=== PATIENT | female | born 1945 | race Caucasian/White ===

== ENCOUNTER 2018-11-13 14:58 | Observation (INO) | payer OTHER ==
--- OUTSIDE RECORDS SUMMARY | 2018-11-13 15:02 | XMS REPORT ---
:1945 [facility] Address [address] [address] Care Team Providers Name Role Phone Unavailable Unavailable Unavailable Problems This patient has no known problems. Allergies, Adverse Reactions, Alerts This patient has no known allergies or adverse reactions. Medications This patient has no known medications. Results Test Description Test Time Test Comments Text Results Atomic Results Result Comments TOMOSYNTHESIS + SCREEN 2017-05-17 15:20:[address] [id number] IMAGING REPORTPatient Name: BLANCA OLSON BDate of Service: [id number]: 72 Sex: F Order #: [id number] [facility] 1945 X-Ray Number: [id number] Record Number: [id number] Hospital Number: [id number] Physician: Melissa LAWRENCE Physician: STEVEN LAWRENCEATERAL DIGITAL MAMMOGRAM WITH TOMOSYNTHESIS:CLINICAL HISTORY: Routine screening evaluation; family history of breastcancer in an aunt.TECHNIQUE: The craniocaudal and mediolateral views were obtained andtomosynthesis was utilizedFINDINGS: The breast parenchymal pattern consists of heterogeneously densebreast tissue. This could obscure small masses.There is a coarse benign calcification noted in the right central breast.This has become evident since the previous study.There is minimal vascular calcification also noted.There is no evidence of axillary adenopathy.IMPRESSION:Stable examination with no evidence of malignancy with benign changes asdescribed.BI-RADS CATEGORY 2: Benign findings.WHITE SHOE RAGGER: Beatris Trinh RTR (M)PLEASE NOTE:1. In up to 10% of patients, cancers are not visible on mammography.2. If a suspicious lump is palpated, biopsy should not be deferredbecause of a negative mammogram.MAMMOGRAPHY AT [facility] IS ACCREDITED BY THE [employer] COLLEGE OFRADIOLOGYTHANK YOU FOR YOUR OUTPATIENT REFERRALjhbElectronically Signed By: Marino Keys M.D., 05/17/2017 3:16 PMBIRADSLegally authenticated by FELICITAS Kramer 2017-05-17 15:16:26
[2018-11-13 15:48] LABS: Absolute Lymphocytes (CBC) 2.4 K/uL (0.7-4.9); Absolute Monocytes 0.5 K/uL (0.1-1.3); Absolute Neutrophil 4.2 K/uL (1.8-8.0); Basophils % 0.4 % (0-1.3); Eosinophils % 3.1 % (0-4.4); Lymphocytes % 32.8 % (15.3-44.8); MPV 7.8 fL (7.6-11.3); RBC Red Blood Cell Count 4.23 M/uL (3.86-4.86)
[2018-11-13 15:52] LABS: Protime INR 0.94
--- NOTE | 2018-11-13 16:07 | RAD REPORT ---
EXAM DESCRIPTION: RAD - Chest Single View - 11/13/2018 4:00 pm CLINICAL HISTORY: CHEST PAIN Chest pain. COMPARISON: No comparisons FINDINGS: Portable technique limits examination quality. The lungs are grossly clear. The heart is normal in size. No displaced fractures. IMPRESSION: No acute intrathoracic process suspected.
[2018-11-13] MEDS ORDERED: ASPIRIN 81 MG CHEWABLE TABLET ONE (16:12)
[2018-11-13] MEDS ORDERED: NITROGLYCERIN 0.4 MG/TAB SL ONE (16:13)
[2018-11-13] MEDS ORDERED: NA CHLORIDE 0.9% 1,000 ML ONE (16:13)
[2018-11-13] MEDS ORDERED: MAGNE/ALUM HYDROXD 30 ML UCUP ONE (16:13)
[2018-11-13] MEDS ORDERED: LIDOCAINE VISCOUS 2% SOLN 15 ML UDC ONE (16:13)
[2018-11-13 16:38] LABS: ALT/SGPT 40 U/L (12-78); AST/SGOT 25 U/L (15-37); Albumin 3.5 g/dL (3.4-5.0); Alkaline Phosphatase 148 U/L (45-117); BUN Blood Urea Nitrogen 18 mg/dL (7-18); Bicarbonate 33 mmol/L (21-32); Bilirubin Direct < 0.1 mg/dL (0-0.2); Bilirubin Total 0.5 mg/dL (0.2-1.0); Glucose Level 223 mg/dL (74-106); Lipase 219 U/L (73-393); NT PRO-BNP 47 pg/mL (<125); Potassium 3.6 mmol/L (3.5-5.1); Protein, Total 7.6 g/dL (6.4-8.2); Sodium Level 142 mmol/L (136-145); Troponin (Emerg Dept Use Only) < 0.02 ng/mL (0.0-0.045)
--- NOTE | 2018-11-13 17:28 | RAD REPORT ---
EXAM DESCRIPTION: CT - Chest For Pe Angio - 11/13/2018 5:03 pm CLINICAL HISTORY: Chest pain. CHEST PAIN COMPARISON: No comparisons TECHNIQUE: CT angiogram of the pulmonary arteries was performed with MIP. All CT scans are performed using dose optimization technique as appropriate and may include automated exposure control or mA/KV adjustment according to patient size. FINDINGS: No evidence of pulmonary thromboembolism. No acute aortic finding demonstrated. Mild ground-glass opacity in both lungs suggest mild interstitial edema. Mild underlying COPD is pres ent with small areas of cavitation in the left apex noted. No significant pericardial or pleural fluid. No concerning bony finding. IMPRESSION: No evidence of pulmonary thromboembolism. Mild interstitial pulmonary edema.
--- NOTE | 2018-11-13 17:29 | RAD REPORT ---
EXAM DESCRIPTION: US - Extremity Venous Uni Ltd - 11/13/2018 5:21 pm CLINICAL HISTORY: PAIN Leg swelling and edema. COMPARISON: No comparisons FINDINGS: Left lower extremity venous system was interrogated with Doppler technique. Normal flow, c ompressibility and augmentation was noted. There is no DVT present. IMPRESSION: No evidence of left lower extremity deep venous thrombosis.
--- NOTE | 2018-11-13 17:34 | ER ---
Nurse's Notes [facility] Name: Basia Capellan Age: 73 yrs Sex: Female : 1945 Arrival Date: 11/13/2018 Time: 15:03 Bed 25 Private MD: out of town, doctor Diagnosis: Chest pain, unspecified Presentation: 11/13 15:14 Presenting complaint: Patient states: i have pain in my chest since Wednesday and today it hj moves to my back, it looks like heart burn but today its whole day; reports SOB; denies N/V; pain is 7/10; denies taking meds BINDER STRIPPER HAND: reports bilateral leg DVT, not taking blood thinners;. Transition of care: patient was not received from another setting of care. Onset of symptoms was November 13, 2018. Risk Assessment: Do you want to hurt yourself or someone else? Patient reports no desire to harm self or others. Initial Sepsis Screen: Does the patient meet any 2 criteria? No. Patient's initial sepsis screen is negative. Does the patient have a suspected source of infection? No. Patient's initial sepsis screen is negative. Care prior to arrival: None. 15:14 Method Of Arrival: Ambulatory 15:14 Acuity: RIANA 3 hj Triage Assessment: 15:22 General: Appears in no apparent distress. uncomfortable, Behavior is calm, cooperative, hj appropriate for age. Pain: Complains of pain in chest Pain radiates to back. Cardiovascular: Capillary refill < 3 seconds Patient's skin is warm and dry. Historical: - Allergies: 15:22 No Known Allergies; hj - Home Meds: 15:22 duloxetine 60 mg oral cpDR 1 cap once daily [Active]; alprazolam 0.5 mg oral tab 1 tab hj 3 times per day [Active]; atorvastatin 40 mg oral tab 1 tab once daily [Active]; nabumetone 750 mg oral tab 1 tab 2 times per day [Active]; gabapentin 600 mg oral tab 1 tab twice a day [Active]; doxepin 100 mg Oral cap 1 cap once daily [Active]; bupropion HCl 100 mg Oral tab 1 tab daily [Active]; - PMHx: 15:22 Anxiety; Hyperlipidemia; Depression; hj - PSHx: 15:22 Hysterectomy; Cholecystectomy; hj - Immunization history:: Adult Immunizations up to date. - Social history:: Smoking status: Patient/guardian denies using tobacco, Patient/guardian denies using alcohol. - Ebola Screening: : Patient negative for fever greater than or equal to 101.5 degrees Fahrenheit, and additional compatible Ebola Virus Disease symptoms Patient denies exposure to infectious person Patient denies travel to an Ebola-affected area in the 21 days before illness onset. Screenin:22 Abuse screen: Denies threats or abuse. Denies injuries from another. Nutritional hj screening: No deficits noted. Tuberculosis screening: No symptoms or risk factors identified. Fall Risk None identified. Assessment: 15:23 Pain: Pain began 1 day ago. hj 16:26 Reassessment: Patient appears in no apparent distress at this time. No changes from ed1 previously documented assessment. Patient and/or family updated on plan of care and expected duration. Pain level reassessed. Patient is alert, oriented x 3, equal unlabored respirations, skin warm/dry/pink. Patient states symptoms have improved. 18:22 Reassessment: Patient appears in no apparent distress at this time. Patient and/or ed1 family updated on plan of care and expected duration. Pain level reassessed. Patient is alert, oriented x 3, equal unlabored respirations, skin warm/dry/pink. Patient states feeling better. Patient states symptoms have improved. 19:37 Reassessment: Attempted to call report, spoke with Little, she stated "She is going to ed1 have to call you back. She is in a patients room.". 20:44 Reassessment: Patient appears in no apparent distress at this time. Patient and/or ed1 family updated on plan of care and expected duration. Pain level reassessed. Patient is alert, oriented x 3, equal unlabored respirations, skin warm/dry/pink. Patient states feeling better. Patient states symptoms have improved. Vital Signs: 15:23 BP 156 / 80; Pulse 80; Resp 18; Temp 97.9(O); Pulse Ox 99% on R/A; Weight 64.86 kg; hj Height 5 ft. 3 in. (160.02 cm); Pain 7/10; 16:24 BP 135 / 80; Pulse 88; Resp 16; Pulse Ox 94% on R/A; mt 16:26 BP 135 / 80; Pulse 84; Resp 18; Pulse Ox 95% on R/A; Pain 4/10; ed1 18:05 BP 152 / 78; Pulse 84; Resp 16; Pulse Ox 95% on R/A; mt 18:22 BP 150 / 86; Pulse 88; Resp 17; Pulse Ox 97% on R/A; Pain 6/10; ed1 19:32 BP 161 / 76; Pulse 75; Resp 17; Temp 98.5(O); Pulse Ox 97% on R/A; Pain 3/10; ed1 20:03 BP 153 / 75; Pulse 71; Resp 16; Pulse Ox 95% on R/A; mt 15:23 Body Mass Index 25.33 (64.86 kg, 160.02 cm) hj ED Course: 15:03 Patient arrived in ED. dl4 15:03 out of town, doctor is Private Physician. dl4 15:15 Triage completed. hj 15:22 Arm band placed on left wrist. hj 15:22 Patient has correct armband on for positive identification. Placed in gown. Bed in low hj position. Call light in reach. Side rails up X 1. food mixer assembler on. Pulse ox on. NIBP on. 15:23 Patient maintains SpO2 saturation greater than 95% on room air. hj 15:24 Vivi Quinn LVN is Primary Nurse. ed1 15:25 Lee Obando PA is PHCP. cp 15:25 Lee Chacko MD is Attending Physician. cp 15:35 Inserted saline lock: 22 gauge in left antecubital area, using aseptic technique. Blood mt collected. 16:00 XRAY Chest (1 view) In Process Unspecified. EDMS 17:04 CT Chest For PE Angio In Process Unspecified. EDMS 17:19 NT PRO-BNP Sent. ed1 17:19 Magnesium Sent. ed1 17:19 LFT's Sent. ed1 17:19 CBC with Diff Sent. ed1 17:19 Basic Metabolic Panel Sent. ed1 17:21 US Extremity Venous Unilateral Ltd In Process Unspecified. EDMS 17:21 Ultrasound completed. Patient tolerated well. sg3 17:33 Tamar Root MD is Hospitalizing Provider. cp 19:38 Resting quietly. Awaiting: to call report to 4th floor. ed1 20:44 No provider procedures requiring assistance completed. Patient admitted, IV remains in ed1 place. intact, No redness/swelling at site. Administered Medications: 16:16 Drug: Aspirin Chewable Tablet 324 mg Route: PO; ed1 18:23 Follow up: Response: No adverse reaction ed1 16:16 Drug: Nitroglycerin 0.4 mg Route: Sublingual; ed1 18:24 Follow up: Response: No adverse reaction; Marked relief of symptoms ed1 16:16 Drug: NS 0.9% 1000 ml Route: IV; Rate: 100 ml/hr; Site: left antecubital; ed1 18:24 Follow up: IV Status: Infusion continued upon admission ed1 16:16 Drug: NS 0.9% 250 ml Route: IV; Rate: calculated rate; Site: left antecubital; ed1 18:26 Follow up: IV Status: Completed infusion; IV Intake: 250ml ed1 16:17 Drug: GI Cocktail without - (Maalox Suspension 30 ml, Lidocaine Liquid 2 % 15 ed1 ml) Route: PO; 18:26 Follow up: Response: No adverse reaction ed1 18:22 Drug: Lovenox 40 mg Route: Sub-Q; Site: left lower abdomen; ed1 20:40 Follow up: Response: No adverse reaction ed1 18:22 Drug: Metoprolol 25 mg Route: PO; ed1 20:40 Follow up: Response: No adverse reaction ed1 Intake: 18:26 IV: 250ml; Total: 250ml. ed1 Outcome: 17:33 Decision to Hospitalize by Provider. cp 20:44 Admitted to Tele accompanied by tech, family with patient, via wheelchair, room 414, ed1 with chart, Report called to PHILIP Loomis 20:44 Condition: stable 20:44 Discharge instructions given to patient, family, Instructed on the need for admit, Demonstrated understanding of instructions. 20:45 Patient left the ED. ed1 Signatures: Dispatcher [employer] EDMS Vivi Quinn, ELLIE ACCORDION TUNER ed1 Rohit Whitlock RN RN hj Page, Corey, PA PA cp Thompson, Moriah mt Godinez, Sarah 3 Shayan Ordaz dl4 Corrections: (The following items were deleted from the chart) 15:25 15:14 Presenting complaint: Patient states: i have pain in my chest since Wednesday and hj today it moves to my back, it looks like heart burn but today its whole day; reports SOB; denies N/V; pain is 7/10; denies taking meds BINDER STRIPPER HAND: hj 15:25 15:23 Pulse 80bpm; Resp 18bpm; Pulse Ox 99% RA; Temp 97.9F Oral; 64.86 kg; Height 5 ft. hj 3 in.; BMI: 25.3; Pain 7/; hj
--- NOTE | 2018-11-13 17:35 | EDPHYS ---
Physician Documentation [facility] Name: Basia Capellan Age: 73 yrs Sex: Female : 1945 Arrival Date: 11/13/2018 Time: 15:03 Bed 25 Private MD: out of town, doctor ED Physician Lee Chacko HPI: 11/13 15:45 This 73 yrs old Female presents to ER via Ambulatory with complaints of cp Cough, Chest Congestion, Chest Pain. 15:45 The patient or guardian reports chest pain that is located primarily in the anterior cp chest wall. 15:45 Onset: 2 day(s) ago, and became persistent this morning. The pain radiates to back. cp Associated signs and symptoms: Pertinent positives: cough, lower extremity pain, lower extremity swelling, Pertinent negatives: abdominal pain, diaphoresis, palpitations, recent travel, shortness of breath, syncope. Duration: The patient or guardian reports multiple episodes, that wax and wane. Historical: - Allergies: 15:22 No Known Allergies; hj - Home Meds: 15:22 duloxetine 60 mg oral cpDR 1 cap once daily [Active]; alprazolam 0.5 mg oral tab 1 tab hj 3 times per day [Active]; atorvastatin 40 mg oral tab 1 tab once daily [Active]; nabumetone 750 mg oral tab 1 tab 2 times per day [Active]; gabapentin 600 mg oral tab 1 tab twice a day [Active]; doxepin 100 mg Oral cap 1 cap once daily [Active]; bupropion HCl 100 mg Oral tab 1 tab daily [Active]; - PMHx: 15:22 Anxiety; Hyperlipidemia; Depression; hj - PSHx: 15:22 Hysterectomy; Cholecystectomy; hj - Immunization history:: Adult Immunizations up to date. - Social history:: Smoking status: Patient/guardian denies using tobacco, Patient/guardian denies using alcohol. - Ebola Screening: : Patient negative for fever greater than or equal to 101.5 degrees Fahrenheit, and additional compatible Ebola Virus Disease symptoms Patient denies exposure to infectious person Patient denies travel to an Ebola-affected area in the 21 days before illness onset. ROS: 15:55 Constitutional: Negative for body aches, chills, fever, poor PO intake. cp 15:55 Eyes: Negative for injury, pain, redness, and discharge. cp 15:55 ENT: Negative for drainage from ear(s), ear pain, sore throat, difficulty swallowing, difficulty handling secretions. 15:55 Neck: Negative for pain with movement, pain at rest, stiffness. 15:55 Cardiovascular: Positive for chest pain, Negative for edema, palpitations. 15:55 Respiratory: Positive for cough, with no reported sputum, Negative for shortness of breath, wheezing. 15:55 Abdomen/GI: Negative for abdominal pain, nausea, vomiting, and diarrhea, black/tarry stool, rectal bleeding. 15:55 Back: Positive for radiated pain. 15:55 : Negative for urinary symptoms. 15:55 Skin: Negative for cellulitis, rash. 15:55 Neuro: Negative for altered mental status, dizziness, headache, loss of consciousness, syncope, weakness. 15:55 All other systems are negative. Exam: 15:44 ECG was reviewed by the Attending Physician. cp 15:55 Constitutional: The patient appears in no acute distress, alert, awake, cp non-diaphoretic, non-toxic, well developed, well nourished. 15:55 Head/Face: Normocephalic, atraumatic. Eyes: Pupils equal round and reactive to light, cp extra-ocular motions intact. Lids and lashes normal. Conjunctiva and sclera are non-icteric and not injected. Cornea within normal limits. Periorbital areas with no swelling, redness, or edema. ENT: Nares patent. No nasal discharge, no septal abnormalities noted. Tympanic membranes are normal and external auditory canals are clear. Oropharynx with no redness, swelling, or masses, exudates, or evidence of obstruction, uvula midline. Mucous membranes moist. Neck: Trachea midline, no thyromegaly or masses palpated, and no cervical lymphadenopathy. Supple, full range of motion without nuchal rigidity, or vertebral point tenderness. No Meningismus. Chest/axilla: Normal chest wall appearance and motion. Nontender with no deformity. No lesions are appreciated. 15:55 Cardiovascular: Rate: normal, Rhythm: regular, Pulses: Pulses are 2+ in right radial artery and left radial artery. Edema: ankle edema, that is mild, left ankle, JVD: is not appreciated. 15:55 Respiratory: the patient does not display signs of respiratory distress, Respirations: normal, no use of accessory muscles, no retractions, no splinting, no tachypnea, labored breathing, is not present, Breath sounds: are clear throughout, no decreased breath sounds, no stridor, no wheezing. 15:55 Abdomen/GI: Inspection: abdomen appears normal, Bowel sounds: active, all quadrants, Palpation: abdomen is soft and non-tender, in all quadrants, rebound tenderness, is not appreciated, voluntary guarding, is not appreciated, involuntary guarding, is not appreciated. 15:55 Back: pain, that is mild, ROM is normal. 15:55 Musculoskeletal/extremity: DVT Exam: pain, of the left leg, swelling, of the left leg, tenderness, that is mild, of the left leg. 15:55 Skin: cellulitis, is not appreciated, no rash present. 15:55 Neuro: Orientation: to person, place \T\ time. Mentation: is normal, Cerebellar function: is grossly normal, Motor: moves all fours, strength is normal, Sensation: is normal. Vital Signs: 15:23 BP 156 / 80; Pulse 80; Resp 18; Temp 97.9(O); Pulse Ox 99% on R/A; Weight 64.86 kg; hj Height 5 ft. 3 in. (160.02 cm); Pain 7/10; 16:24 BP 135 / 80; Pulse 88; Resp 16; Pulse Ox 94% on R/A; mt 16:26 BP 135 / 80; Pulse 84; Resp 18; Pulse Ox 95% on R/A; Pain 4/10; ed1 18:05 BP 152 / 78; Pulse 84; Resp 16; Pulse Ox 95% on R/A; mt 18:22 BP 150 / 86; Pulse 88; Resp 17; Pulse Ox 97% on R/A; Pain 6/10; ed1 19:32 BP 161 / 76; Pulse 75; Resp 17; Temp 98.5(O); Pulse Ox 97% on R/A; Pain 3/10; ed1 20:03 BP 153 / 75; Pulse 71; Resp 16; Pulse Ox 95% on R/A; mt 15:23 Body Mass Index 25.33 (64.86 kg, 160.02 cm) MDM: 15:27 Patient medically screened. 17:32 Data reviewed: vital signs, nurses notes, lab test result(s), EKG, radiologic studies, cp CT scan, plain films, ultrasound. 17:32 The patient was given aspirin in the Emergency Department. Test interpretation: by ED cp physician or midlevel provider: ECG, plain radiologic studies. 17:35 Physician consultation: Tamar Root MD was called at 17:30, was contacted at 17:30, cp regarding admission, to the telemetry unit. patient's condition. 11/13 15:40 Order name: Basic Metabolic Panel 11/13 15:40 Order name: CBC with Diff 11/13 15:40 Order name: LFT's cp 11/13 15:40 Order name: Magnesium cp 11/13 15:40 Order name: NT PRO-BNP cp 11/13 15:40 Order name: PT-INR; Complete Time: 16:27 cp 11/13 15:40 Order name: Troponin (emerg Dept Use Only); Complete Time: 16:40 cp 11/13 16:41 Interpretation: Reviewed. 11/13 15:40 Order name: D-Dimer; Complete Time: 16:27 cp 11/13 17:31 Interpretation: D-DIMER 722; Reviewed. 11/13 15:40 Order name: Lipase; Complete Time: 16:40 cp 11/13 15:41 Order name: Basic Metabolic Panel; Complete Time: 16:40 EDMS 11/13 16:40 Interpretation: Normal except: CO2 33; GLUC 223; GFR 49. cp 11/13 15:41 Order name: CBC with Automated Diff; Complete Time: 16:27 EDMS 11/13 16:28 Interpretation: Reviewed. 11/13 15:41 Order name: Liver (Hepatic) Function; Complete Time: 16:40 EDMS 11/13 16:41 Interpretation: Normal except: ALK 148; GLOB 4.1; A/G 0.9. cp 11/13 15:41 Order name: Magnesium; Complete Time: 16:40 EDMS 11/13 15:41 Order name: NT PRO-BNP; Complete Time: 16:40 EDMS 11/13 15:24 Order name: EKG; Complete Time: 15:24 hj 11/13 15:40 Order name: XRAY Chest (1 view); Complete Time: 16:27 cp 11/13 15:40 Order name: Cardiac monitoring; Complete Time: 15:42 cp 11/13 15:40 Order name: EKG - Nurse/Tech; Complete Time: 15:42 cp 11/13 15:40 Order name: IV Saline Lock; Complete Time: 15:43 cp 11/13 16:01 Order name: CT Chest For PE Angio; Complete Time: 17:31 cp 11/13 16:01 Order name: US Extremity Venous Unilateral Ltd; Complete Time: 17:31 cp 11/13 18:01 Order name: Urine Dipstick--Ancillary (enter results) ag 11/13 18:17 Order name: Urine Dipstick-Ancillary EDMS 11/13 15:40 Order name: Labs collected and sent; Complete Time: 15:43 cp 11/13 15:40 Order name: O2 Per Protocol; Complete Time: 15:43 cp 11/13 15:40 Order name: O2 Sat Monitoring; Complete Time: 15:43 cp 11/13 16:02 Order name: Urine Dipstick-Ancillary (obtain specimen); Complete Time: 18:29 cp EC:44 Rate is 81 beats/min. Rhythm is regular. MT interval is normal. QRS interval is normal. cp QT interval is normal. T waves are Inverted in lead aVL. Interpreted by me. Reviewed by me. Administered Medications: 16:16 Drug: Aspirin Chewable Tablet 324 mg Route: PO; ed1 18:23 Follow up: Response: No adverse reaction ed1 16:16 Drug: Nitroglycerin 0.4 mg Route: Sublingual; ed1 18:24 Follow up: Response: No adverse reaction; Marked relief of symptoms ed1 16:16 Drug: NS 0.9% 1000 ml Route: IV; Rate: 100 ml/hr; Site: left antecubital; ed1 18:24 Follow up: IV Status: Infusion continued upon admission ed1 16:16 Drug: NS 0.9% 250 ml Route: IV; Rate: calculated rate; Site: left antecubital; ed1 18:26 Follow up: IV Status: Completed infusion; IV Intake: 250ml ed1 16:17 Drug: GI Cocktail without - (Maalox Suspension 30 ml, Lidocaine Liquid 2 % 15 ed1 ml) Route: PO; 18:26 Follow up: Response: No adverse reaction ed1 18:22 Drug: Lovenox 40 mg Route: Sub-Q; Site: left lower abdomen; ed1 20:40 Follow up: Response: No adverse reaction ed1 18:22 Drug: Metoprolol 25 mg Route: PO; ed1 20:40 Follow up: Response: No adverse reaction ed1 Disposition: 11/14 07:26 Co-signature as Attending Physician, Lee Chacko MD I agree with the assessment and lis plan of care. Disposition: 11/13/18 17:33 Hospitalization ordered by Tamar Root for Observation. Preliminary diagnosis is Chest pain, unspecified. - Bed requested for Telemetry/MedSurg (observation). - Status is Observation. ed1 - Condition is Stable. - Problem is new. - Symptoms have improved. UTI on Admission? No Signatures: Dispatcher [employer] EDMS Lee Chacko MD MD cha Riggs, Erika, LEHR CUTTER LEHR CUTTER ed1 Eula Hardin ag Rohit Whitlock, PHILIP RN hj Lee Obando PA PA cp Corrections: (The following items were deleted from the chart) 11/13 17:51 17:33 Hospitalization Ordered by Tamar Root MD for Observation. Preliminary diagnosis ag is Chest pain, unspecified. Bed requested for Telemetry/MedSurg (observation). Status is Observation. Condition is Stable. Problem is new. Symptoms have improved. UTI on Admission? No. cp 20:45 17:51 11/13/2018 17:33 Hospitalization Ordered by Tamar Root MD for Observation. ed1 Preliminary diagnosis is Chest pain, unspecified. Bed requested for Telemetry/MedSurg (observation). Status is Observation. Condition is Stable. Problem is new. Symptoms have improved. UTI on Admission? No. ag 11/14 16:32 11/12 15:45 This 73 yrs old Female presents to ER via Ambulatory with cp complaints of Cough, Chest Congestion, Chest Pain. cp
[2018-11-13 18:16] LABS: Urine Blood TRACE (NEG); Urine Glucose TRACE (NEG); Urine Protein NEGATIVE (NEG)
[2018-11-13] MEDS ORDERED: ENOXAPARIN 40 MG/0.4 ML SQ ONE (18:27)
[2018-11-13] MEDS ORDERED: METOPROLOL TAR 25 MG TAB ONE (18:27)
[2018-11-13 20:59] VITALS: BMI 25.3
[2018-11-13] MEDS ORDERED: POTASSIUM CL SA 10 MEQ TAB PO ONE (22:05)
[2018-11-14] MEDS ORDERED: DIPHENHYDRAMINE PO PRN (01:51)
[2018-11-14] MEDS ORDERED: ALPRAZOLAM 0.5 MG TABLET PO PRN (01:51)
[2018-11-14] MEDS ORDERED: ACETAMINOPHEN PO PRN (01:51)
[2018-11-14] MEDS ORDERED: ALPRAZOLAM 1 MG TABLET PO ONE (01:52)
[2018-11-14] MEDS ORDERED: DOXEPIN HCL 25 MG CAP PO SCH ×2 (03:00→21:00)
[2018-11-14] MEDS ORDERED: GABAPENTIN 300 MG CAP PO SCH ×3 (03:00→09:00)
[2018-11-14 06:38] LABS: Absolute Lymphocytes (CBC) 2.2 K/uL (0.7-4.9); Absolute Monocytes 0.5 K/uL (0.1-1.3); Absolute Neutrophil 3.8 K/uL (1.8-8.0); Basophils % 0.3 % (0-1.3); Eosinophils % 2.8 % (0-4.4); Hematocrit 37.8 % (36.0-45.0); Lymphocytes % 32.2 % (15.3-44.8); MPV 7.9 fL (7.6-11.3); Monocytes % 7.8 % (3.3-12.3); RBC Red Blood Cell Count 4.07 M/uL (3.86-4.86)
[2018-11-14 06:57] LABS: Albumin 3.3 g/dL (3.4-5.0); Bilirubin Total 0.5 mg/dL (0.2-1.0); Potassium 3.5 mmol/L (3.5-5.1); Protein, Total 7.2 g/dL (6.4-8.2)
--- NOTE | 2018-11-14 07:46 | EKG ---
Test Date: 2018-11-14 Test Time: 01:03:04 Airline Operations Agent: TIFFANIE MEASUREMENT RESULTS: Intervals: Rate: 73 SD: 166 QRSD: 82 QT: 428 QTc: 471 [place]: P: 43 SD: 166 QRS: 19 T: 71 INTERPRETIVE STATEMENTS: Normal sinus rhythm Septal infarct, age undetermined Abnormal ECG Compared to ECG 11/13/2018 15:16:55 Myocardial infarct finding now present Electronically Signed On 11-14-18 07:46:34 BANKING SPECIALIST by Arden Whitt
--- NOTE | 2018-11-14 07:47 | EKG ---
Test Date: 2018-11-13 Test Time: 15:16:55 Court Abstractor: MEASUREMENT RESULTS: Intervals: Rate: 81 OR: 166 QRSD: 78 QT: 412 QTc: 478 [place]: P: 65 OR: 166 QRS: 21 T: 85 INTERPRETIVE STATEMENTS: Normal sinus rhythm Normal ECG No previous ECG available for comparison Electronically Signed On 11-14-18 07:46:39 SECURITY TECH by Arden Whitt
[2018-11-14] MEDS ORDERED: REGADENOSON 0.4 MG/5 ML SYR IV ONE (08:54)
[2018-11-14] MEDS ORDERED: HOME MED 1 EA UNK (Duloxetine Hcl [Duloxetine Hcl] 60 MG) PO SCH (09:00)
[2018-11-14] MEDS ORDERED: DULOXETINE 30 MG CAP PO SCH (09:00)
[2018-11-14] MEDS ORDERED: NABUMETONE 750 MG PO SCH (09:00)
[2018-11-14] MEDS ORDERED: POTASSIUM 25 MEQ EFFERV TAB PO ONE (09:00)
[2018-11-14] MEDS ORDERED: BUPROPION HCL 100 MG PO SCH (09:00)
[2018-11-14] MEDS ORDERED: GABAPENTIN 1800 MG PO SCH (09:00)
[2018-11-14] MEDS: ENOXAPARIN 40 MG/0.4 ML SQ SCH (09:19)
[2018-11-14] MEDS: ATORVASTATIN 40 MG TAB PO SCH (09:20)
--- NOTE | 2018-11-14 10:27 | P.HP ---
Certification for Inpatient Patient admitted to: Observation With expected LOS: <2 Midnights Patient will require the following post-hospital care: None Practitioner: I am a practitioner with admitting privileges, knowledge of patient current condition, hospital course, and medical plan of care. Services: Services provided to patient in accordance with Admission requirements found in Title 42 Section 412.3 of the Code of Federal Regulations Patient History Date of Service: 11/13/18 Reason for admission: Chest pain History of Present Illness: Patient is a 73-year-old female who was admitted to the hospital with chest discomfort. Patient has a history of rheumatoid arthritis and osteoarthritis. Patient has sternal discomfort. She has also been dealing with the loss of her . She was visiting with her daughter and she has been undergoing a lot of stress. This could be related to her stress. Otherwise her labs look to be fairly unremarkable. EKG does not show any significant abnormality. Troponins are negative. Patient be worked up and ruled out for acute coronary syndrome. Allergies No Known Allergies Allergy (Verified 11/13/18 21:41) Home Medications: Acetaminophen/Diphenhydramine [Tylenol Pm Ex-Strength Caplet] 2 tab PO DAILYPRN PRN 11/13/18 Alprazolam [Xanax] 0.5 mg PO TIDP PRN 11/13/18 Atorvastatin Calcium [Lipitor] 40 mg PO DAILY 11/13/18 Doxepin HCl 100 mg PO BEDTIME 11/13/18 Duloxetine HCl 60 mg PO DAILY 11/13/18 Gabapentin 1,800 mg PO BID 11/13/18 Nabumetone 750 mg PO BID 11/13/18 buPROPion HCl [Bupropion HCl Sr] 100 mg PO DAILY 11/13/18 - Past Medical/Surgical History Has patient received pneumonia vaccine in the past: Yes Diabetic: No -: hyperlipidemia -: osteoporosis -: osteoarthritis -: RA -: depression -: insomnia -: anxiety -: dvt x 2 -: hysterectomy -: Cholecystectomy - Family History Father Medical History: Stroke, Other (see notes) Notes: smoker, (65 yo) Mother Medical History: Lung disease, Other (see notes) Notes: alzheimiers, arthiritis, COPD. (86 yo) Brother Medical History: Diabetes, Cancer Notes: colon ca - Social History Smoking Status: Never smoker Alcohol use: Yes CD- Drugs: No Caffeine use: Yes Place of Residence: Home Review of Systems 10-point ROS is otherwise unremarkable Physical Examination - Vital Signs Temperature: 98.2 F Blood Pressure: 139/75 Pulse: 73 Respirations: 22 Pulse Ox (%): 94 - Physical Exam General: Alert, In no apparent distress, Oriented x3 HEENT: Atraumatic, PERRLA, Mucous membr. moist/pink, EOMI, Sclerae nonicteric Neck: Supple, 2+ carotid pulse no bruit, No LAD, Without JVD or thyroid abnormality Respiratory: Clear to auscultation bilaterally, Normal air movement Cardiovascular: Regular rate/rhythm, Normal S1 S2, Systolic murmur (DHAVAL 3/6) Gastrointestinal: Normal bowel sounds, Soft and benign, Non-distended, No tenderness Musculoskeletal: No clubbing, No swelling, No tenderness Integumentary: No rashes Neurological: Normal gait, Normal speech, Normal strength at 5/5 x4 extr, Normal tone, Sensation intact, Cranial nerves 3-12 intact, Normal affect Lymphatics: No axilla or inguinal lymphadenopathy - Studies Laboratory Data (last 24 hrs) 11/13/18 15:30: PT 11.1, INR 0.94 11/13/18 15:30: WBC 7.4, Hgb 13.0, Hct 39.0, Plt Count 337 11/13/18 15:30: Sodium 142, Potassium 3.6, BUN 18, Creatinine 1.10, Glucose 223 H, Magnesium 2.0, Total Bilirubin 0.5, AST 25, ALT 40, Alkaline Phosphatase 148 H, Lipase 219 Assessment & Plan - Problems (Diagnosis) (1) Chest pain, rule out acute myocardial infarction Current Visit: Yes Status: Acute (2) Hypertension Current Visit: Yes Status: Acute (3) Generalized anxiety disorder Current Visit: Yes Status: Acute (4) Depression Current Visit: Yes Status: Acute - Plan 1. Serial troponins and EKG 2. Cardiology consultation 3. Echocardiogram and stress test if cardiology is agreeable 4. Anti-platelet therapy, anti coagulation, beta-juanito, statin, and O2 as needed 5. IV morphine for pain 6. Nitro p.r.n. Discharge Plan: Home Plan to discharge in: 48 Hours - Advance Directives Does patient have a Living Will: No Does patient have a Durable POA for Healthcare: No - Code Status/Comfort Care Code Status Assessed: Yes Code Status: Full Code Critical Care: No Time Spent Managing PTS Care (In Minutes): 50
--- NOTE | 2018-11-14 12:38 | ECHO ---
HEIGHT: 5 ft 3 in WEIGHT: 143 lb 3.2 oz DATE OF STUDY: 11/14/[address]: Arden Whitt MD 2-DIMENSIONAL: YES M.MODE: YES DOPPLER: YES COLOR FLOW: YES TDS: PORTABLE: DEFINITY: BUBBLE STUDY: DIAGNOSIS: CHEST PAIN CARDIAC HISTORY: CATHERIZATION: NO SURGERY: NO PROSTHETIC VALVE: NO PACEMAKER: NO MEASUREMENTS (cm) DIASTOLIC (NORMALS) SYSTOLIC (NORMALS) IVSd 1.2 (0.6-1.2) LA Diam 3.1 (1.9-4.0) LVEF 53% LVIDd 3.6 (3.5-5.7) LVIDs 2.7 (2.0-3.5) %FS 27% LVPWd 1.1 (0.6-1.2) Ao Diam 2.5 (2.0-3.7) 2 DIMENSIONAL ASSESSMENT: RIGHT ATRIUM: NORMAL LEFT ATRIUM: NORMAL RIGHT VENTRICLE: NORMAL LEFT VENTRICLE: NORMAL TRICUSPID VALVE: NORMAL MITRAL VALVE: NORMAL PULMONIC VALVE: NORMAL AORTIC VALVE: NORMAL PERICARDIAL EFFUSION: NONE AORTIC ROOT: NORMAL LEFT VENTRICULAR WALL MOTION: NORMAL DOPPLER/COLOR FLOW: NORMAL COMMENTS: NORMAL TWO DIMENSIONAL ECHOCARDIOGRAM WITH DOPPLER. TECHNOLOGIST: CHALO SULLIVAN
--- NOTE | 2018-11-14 12:39 | RAD REPORT ---
EXAM DESCRIPTION: NM - Rest Stress Cardiac Imaging - 11/14/2018 12:30 pm CLINICAL HISTORY: Chest pain. COMPARISON: None. TECHNIQUE: The patient was administered approximately 10mCi of Tc 99m Sestamibi prior to resting SPE CT imaging of the heart. The patient was then administered approximately 30 mCi of Tc 99m Sestamibi f ollowing exercise or pharmacologic stress. Multiplanar SPECT images were reviewed. FINDINGS: Small area of diminished radiotracer activity involves the inferior left ventricular myoca rdium on rest and stress sequences. The left ventricular ejection fraction equals 67% IMPRESSION: Small apparent fixed perfusion defect involving the inferior left ventricular myocardium probably secondary to attenuation from the diaphragm. An infarct can also have this appearance. There is no evidence of stress-induced ischemia
--- NOTE | 2018-11-14 13:02 | TREADPHA ---
DX: CHEST PAIN Date of Study: 11/14/18 Ht: 5 3 Wt: 143 lb 3.2 oz Consulting Physician: TAOC MEDICATIONS: XANAX, LIPITOR, DOXEPIN, CYMBALTA, LOVENOX, GABAPENTIN, POTASSIUM, BICARBONATE HISTORY: 73 YEAR OLD FEMALE, CHEST PAIN, HISTORY OF NON SMOKER, OCCASIONAL DRINKER, ANXIETY, HYPERLIPDEMIA, DEPRESSION. PHYSICIAL EXAMINATION: RESTING B.P.: 149/81 RESTING H.R.: 79 RESTING EKG: MILDLY PROLONGED QT OTHERWISE NORMAL. PROTOCOL: LEXISCAN EXERCISE TIME: 3:30 B.P. AT PEAK STRESS: 156/81 IMPRESSION: LEXISCAN INJECTED, FOLLOWED BY CARDIOLITE PER PROTOCOL, SEE NUCLEAR MEDICINE REPORT. NO SUPR A VENTRICULAR TACHYCARDIA. NO VENTRICULAR TACHYCARDIA, NO PREMATURE ATRIAL COMPLEXES, NO PREMATURE VENTRICULAR COMPLEXES. PATIENT REPORTED, NO CHEST PAIN, OR TIGHTNESS THROUGHT PROCEDURE. NO DIAGNOSTIC EKG WITH LEXISCAN STRESS.
--- NOTE | 2018-11-14 16:27 | CON ---
CARDIOLOGY CONSULT Chief Complaint: Chest pain. History Of Present Illness: Ms. Capellan came to the hospital yesterday with chest pain. This pena s been present since Wednesday constant epigastric pain . CT angio of the chest fo r pulmonary embolus is negative. EKG shows a questionable cardiac enzymes . Th e patient has never had myocardial infarction, stroke, , hypertension, dyslipidemia ___ have diabetes. Does not smoke family history. Medications: Outpatient medications duloxetine, nabumetone, doxepin, gabapentin, and Tylen ol Extra Strength PM. Allergies: NO ALLERGIES. Physical Examination: Vital Signs: 5 feet 3, 143 pounds. HEENT: Normal. Lungs: Clear. Neck: Carotids, no bruit. HEART: Within normal limits. Extremities: Normal pulses. No cyanosis, clubbing, or edema. Diagnostic Data: EKG shows sinus rhythm with a septal infarct , possibly due to lead placem ent. Impression: The patient should be examined for heart disease, although this seems to be a nd a sensation that every time she swallows, it hurts. We will do a nuclear stress test with pharmacologic stress test and an echo today. If those are all abnormal, we should proceed with a GI workup. BLANCA Voice ID: [id number] Report ID: [id number]
[2018-11-14] MEDS ORDERED: SODIUM CHLORIDE 0.9% 10ML INJ IV PRN (18:28)
--- NOTE | 2018-11-14 18:31 | P.PN ---
Subjective Date of Service: 11/14/18 Chief Complaint: Chest pain Patient seen and examined at bedside. Chart reviewed and case discussed with nursing staff. Review of Systems 10-point ROS is otherwise unremarkable Physical Examination - Vital Signs Temperature: 98.9 F Blood Pressure: 148/76 Pulse: 88 Respirations: 20 Pulse Ox (%): 93 - Physical Exam General: Alert, In no apparent distress, Oriented x3 HEENT: Atraumatic, PERRLA, EOMI Neck: Supple, JVD not distended Respiratory: Clear to auscultation bilaterally, Normal air movement Cardiovascular: Regular rate/rhythm, Normal S1 S2 Gastrointestinal: Normal bowel sounds, No tenderness Musculoskeletal: No tenderness Integumentary: No rashes Neurological: Normal speech, Normal tone, Normal affect Lymphatics: No axilla or inguinal lymphadenopathy Assessment And Plan - Plan - Problems (Diagnosis) (1) Chest pain, rule out acute myocardial infarction Current Visit: Yes Status: Acute (2) Hypertension Current Visit: Yes Status: Acute (3) Generalized anxiety disorder Current Visit: Yes Status: Acute (4) Depression Current Visit: Yes Status: Acute - Plan 1. Serial troponins and EKG 2. Cardiology consultation, recommendations appreciated. 3. Echocardiogram and stress test today. 4. Anti-platelet therapy, anti coagulation, beta-juanito, statin, and O2 as needed 5. IV morphine for pain 6. Nitro p.r.n. 7. IV protonix started. May need GI workup
[2018-11-14] MEDS: GABAPENTIN 600 MG TABLET PO SCH (20:54)
[2018-11-14] MEDS: PANTOPRAZOLE 40 MG INJ IVP SCH (20:55)
[2018-11-14] MEDS ORDERED: DOXEPIN HCL 100 MG PO SCH (21:00)
[2018-11-14] MEDS ORDERED: DOXEPIN 100 MG CAPSULE PO SCH (21:00)
[2018-11-15 06:54] LABS: Potassium 3.7 mmol/L (3.5-5.1)
[2018-11-15] MEDS ORDERED: POTASSIUM CL SA 10 MEQ TAB PO ONE (07:33)
[2018-11-15 08:54] VITALS: TEMP 98
[2018-11-15] MEDS ORDERED: DULOXETINE 60 MG CAPSULE PO SCH (09:00)
[2018-11-15] MEDS: GABAPENTIN 600 MG TABLET PO SCH (09:19)
[2018-11-15] MEDS: ENOXAPARIN 40 MG/0.4 ML SQ SCH (09:20)
[2018-11-15] MEDS: PANTOPRAZOLE 40 MG INJ IVP SCH (09:21)
[2018-11-15] MEDS: ATORVASTATIN 40 MG TAB PO SCH (09:24)
[2018-11-15 12:32] VITALS: O2SAT 93
[2018-11-15 13:08] VITALS: BP 148/74
--- NOTE | 2018-11-15 21:37 | CON ---
Date of Consultation: 11/15/2018 Reason For Consultation: Epigastric abdominal pain and esophageal pain. Brief History Of Present Illness: The patient is a 73-year-old female, admitted the hospit nc with chest pain in the substernal area and history of rheumatoid arthritis, osteoarthritis. The s ubsternal discomfort is in the epigastric region and in the retrosternal position. She has been noti cing a progression of pain in the superior posterior swallowing solids worse than liquids, but now sh alexandru has pain with swallowing liquids. She has had occasional paining sensation of food in her esophagu s and she will help the food passed with the swallowing of liquids to help this past food stuff. She has decreased the p.o. intake and modified her diet accordingly in her eating habits, but has not si gnificantly modified the content of her diet. She does not notice any specific food triggers, but no johann that solids are more difficult than liquids with respect to passage, but with suspected pain, she continues to have pain with any swallowing and she has a pain in the substernal/epigastric position associated with this. She has not had any vomiting episodes. She has had no halitosis. She has had no regurgitation of food stuffs. She has had no change in her bowel or bladder habits and has not n oted any blood loss in her stool. She normally lives [facility]. She recently lost her , has been under great deal of stress and as her diet has been very difficult as she has been travelin g with him for his cancer treatment. She was admitted with the chest pain and a cardiac workup was p erformed. Past Medical History: Significant for hyperlipidemia, osteoporosis, osteoarthritis, rheumatoid arthr itis, depression, insomnia, anxiety, DVT x2. Past Surgical History: Includes hysterectomy, cholecystectomy. Allergies: NO KNOWN DRUG ALLERGIES. Medications: Include Tylenol, Xanax, Lipitor, doxepin, duloxetine, gabapentin, nabumetone and buprop ion. Social History: She denies smoking. She uses alcohol occasionally. Denies recreational drug use of any kind. Family History: Includes a stroke in her mother as well as smoking in her mother. Lung disease in h er father, Alzheimer's, arthritis, COPD. Her father had stroke and he was a smoker. Her brother has diabetes and cancer, colon cancer specifically. Review of Systems: A 10-point review of systems other than HPI, denies. Physical Examination: Vital Signs: At the time examination, her BMI is 25.4. Her vital signs were a blood pressure 140/74 , pulse is 80, respiratory rate 16, temperature 98.0. General: She is awake, alert, oriented. Psychiatric: She is appropriate, conversive. HEENT: Normocephalic. Sclerae icteric. Mucous membranes moist. Oropharynx clear. Neck: Supple. No JVD. Chest: Normal expansion and excursion. Cardiovascular: Regular rate and rhythm. Pulmonary: Clear to auscultation bilaterally. Abdomen: Soft, nontender, nondistended. No rebound or guarding. No focal peritonitis. No epigastr ic tenderness. Extremities: No clubbing, cyanosis, or edema. Skin: Warm and dry. Laboratory Data: Reveals a white blood cell count 6.8, hemoglobin 12.6, hematocrit 37.8, platelet co unt is 317. PT on admission was 11.1, INR 0.94. D-dimer 722. Her sodium is 144, potassium 3.6, chl oride 105, carbon dioxide 31, BUN 18, creatinine 0.95. Her glucose is 166. Her troponins were negat jhonny x2 checks less than 0.02 on each. Alkaline phosphatase is 138 on admission. Her cholesterol was 210 on admission. Lipase was 219. She had positive nitrites and leukocyte esterase trace on the UA . She had several imaging studies including a chest x-ray performed on 11/13, which is officially re ad as no acute intrathoracic process suspected. She had a CTA of the chest as well which was officia lly read as no evidence of possible pulmonary thromboembolism, mild interstitial pulmonary edema. Sh e had an extremity DVT study, which was officially read as no evidence of left lower extremity DVT. She additionally had a cardiac imaging nuclear medicine stress test performed, which showed a small a pparent fixed perfusion defect involving the inferior left ventricular myocardium, probably secondary to attenuation diaphragm and infarct and also have this appearance. No evidence of stress induced i schemia and the left ventricular ejection fracture equals 67%. Assessment/plan: This is a 73-year-old female who comes in with retrosternal epigastric abdominal pa in, likely of esophageal origin. 1.Continue IV fluid hydration. 2.Recommend EGD and esophagram as part of continued workup. 3.I have explained the risks, benefits, and alternatives of the above stated plan. The patient agre es to proceed as indicated. Whether the patient receives an inpatient or outpatient, I will discuss with the remaining providers and the patient to decide which best fits her situation. Thank you for this interesting consult. REDD Voice ID: [id number] Report ID: [id number]
--- NOTE | 2018-11-16 16:11 | DS ---
Date of Discharge: 11/15/2018 Consultants: Dr. Whitt with Cardiology and Dr. Johns with General Surgery. Procedures: Cardiac stress test, which was negative. Code status: Full Admitting Diagnoses: 1. Chest pain, rule out acute coronary syndrome. 2. Essential hypertension. 3. Generalized anxiety disorder. 4. Depression. Discharge Diagnoses: 1. Chest pain, acute coronary syndrome ruled out. 2. Abdominal pain, epigastric, likely related to esophageal dysfunction. 3. Essential hypertension. 4. Generalized anxiety disorder. 5. Major depressive disorder. Hospital Course: The patient is a 73-year-old female visiting from out of town in [place], who was admitted to the hospital for chest pain. The patient has been having 3 month symptoms of epigastric and upper abdominal discomfort, which have been masked as chest pain. She also reports pain with swallowing. She denies any weight loss. No hematemesis. The patient denies any history of nicotine use. The patient was admitted to the hospital, had workup done including CT angio chest, which was negative for PE. COPD was present with small areas of cavitation in the left apex. The patient does have a history of secondhand smoke. The patient was seen by Cardiology. Stress test was recommended. She had an EF of 67%. No evidence of stress-induced ischemia was present. Pharmacological stress test was negative. The patient was cleared for discharge from Cardiology standpoint. Echocardiogram showed EF of 53%. The patient was then seen by Dr. Johns due to possible GI workup including endoscopy and esophagram was ordered, however, as the patient was admitted for chest pain, esophagram would not be covered through her insurance. The patient declined the procedure. She understands the risks related to declining the procedure including worsened outcome, missed diagnosis due to lack of diagnostic testing and adverse outcome. The patient understands risks and does not wish to have any esophagram or endoscopy done. After speaking with Dr. Johns, as this is not an emergent case, the patient is able to follow up outpatient, however, she lives in [place] and the patient was counseled regarding followup with her primary care physician to be referred to GI to evaluate her symptoms of painful swallowing. The patient otherwise was able to tolerate her diet. She did not have any nausea or vomiting. No hematemesis. The patient was then cleared for discharge from [facility] consultant's standpoint. She was sent home in stable condition. Activity: As tolerated. Medications: As per medication reconciliation list. Diet: Heart healthy. Followup: Follow up with primary care physician in 2-3 days. Follow up with GI in 2-4 weeks. Return to ER for worsening condition. Physical Examination: General: Awake, alert, oriented x3. No acute distress. CV: S1, S2. No murmurs. Respiratory: moving air well bilaterally. No wheezing. Gastrointestinal: Abdomen is soft, nontender, nondistended. Positive bowel sounds. Extremities: No clubbing, cyanosis, edema. Neurologic: Nonfocal. Code Status: Full. SA/MODL Voice ID: [id number] Report ID: [id number]
== END 2018-11-15 18:05 | disposition home or self-care (01) ==
LOC: ER 14:58 → ERHOLD 17:42 → 4TH 20:35
PROVIDERS: ADMIT Family Medicine; ATTEND Hospitalist
DX: R07.9 Chest pain, unspecified (principal); R10.13 Epigastric pain; M06.9 Rheumatoid arthritis, unspecified; M19.90 Unspecified osteoarthritis, unspecified site; E78.5 Hyperlipidemia, unspecified; I10 Essential (primary) hypertension; F41.8 Other specified anxiety disorders; Z86.718 Personal history of other venous thrombosis and embolism
CPT/HCPCS: 36415 ×3; 71045; 71275; 78452; 80048 ×2; 80053; 80061; 80076; 81003; 83690; 83735; 83880; 84132; 84484 ×3; 85025 ×2; 85379; 85610; 93005 ×2; 93017; 93306; 93971; 94760 ×4; 96365; 96366; 96372; 99285; A9500; C9113 ×2; G0378 ×2; J1650 ×3; J2785; J7030; Q9967